=== PATIENT | male | born 1965 | race Two or more races ===

== ENCOUNTER → 2016-03-20 | Day surgery (SDC) | payer OTHER ==
[~2016-03-20] MED LIST: ASPI-482 PO; FENTANYL PF 100 MCG/2 ML VIAL. IV PRN; HYDROMORPHONE 2 MG/ML VIAL. IV PRN; IV RINGERS,LACTATED 1000ML 1,000 ML IV SCH; LIDOCAINE 1% 1 ML SYRINGE. ID PRN; LIDOCAINE 2% PF Vial for OR 5 ML VIAL. ONE; LISI10TA2 PO; MORPHINE SULFATE 2 MG/ML DISP.SYRIN. IV PRN; ONDANSETRON PF 4 MG/2 ML VIAL. IV PRN; PROCHLORPERAZINE 10 MG/2 ML VIAL. IV PRN; PROPOFOL 40 ML IV ONE
[2016-03-20 08:52] VITALS: BP 121/70
--- NOTE | 2016-03-23 15:18 | PATHOLOGY ---
PATHOLOGY REPORT * * * * * * * * FINAL DIAGNOSIS: Colon biopsy, transverse colon polyp: - Tubular adenoma. COMMENT: There is no high-grade dysplasia or evidence of malignancy. (NADEEMM:; d/t: 03/23/16) REPORT ELECTRONICALLY SIGNED BY: Morgan Landeros M.D. DATE/TIME: 03/23/2016 15:18 * * * * * * * * GROSS PATHOLOGY: Received in formalin labeled "Annmarie Bertrand, transverse colon polyp biopsy," are two segments of clifford soft tissue measuring 0.4 x 0.3 x 0.1 cm in aggregate dimensions and ranging from 0.1 to 0.3 cm in maximum dimension. The specimen is submitted entirely in cassette A1. (CAA; 03/20/2016) INITIAL CPT CODE(S): A; 10647 Professional services performed by [facility] [place] [address] Technical services performed by [facility] at [address] [place] [address], [facility] [address] [address]. SPECIMEN(S) RECEIVED: A.Transverse colon polyp CLINICAL HISTORY: Abdominal pain; polyp PATIENT: ANNMARIE BERTRAND /AGE: 7 1965 (Age: 50) PATIENT #: [id number] ALT CASE #: SPECIMEN COLLECTION DATE: 03/20/2016 SPECIMEN RECEIVED DATE: 03/20/2016 [facility] - [address] [place] [address] - PHONE: [phone] * * * END OF REPORT * * *
== END ==
LOC: ENDOS 06:48
PROVIDERS: ATTEND Internal Medicine Gastroenterology
DX: K63.5 Polyp of colon (principal); K64.0 First degree hemorrhoids; I10 Essential (primary) hypertension; Z72.89 Other problems related to lifestyle; Z79.82 Long term (current) use of aspirin
CPT/HCPCS: 45380; J2704

== ENCOUNTER → 2016-04-24 | Outpatient (CLI) | payer OTHER ==
[2016-03-20 08:52] VITALS: BP 121/70
[~2016-04-24] MED LIST changes: -FENTANYL PF 100 MCG/2 ML VIAL. IV PRN; -HYDROMORPHONE 2 MG/ML VIAL. IV PRN; -IV RINGERS,LACTATED 1000ML 1,000 ML IV SCH; -LIDOCAINE 1% 1 ML SYRINGE. ID PRN; -LIDOCAINE 2% PF Vial for OR 5 ML VIAL. ONE; -MORPHINE SULFATE 2 MG/ML DISP.SYRIN. IV PRN; -ONDANSETRON PF 4 MG/2 ML VIAL. IV PRN; -PROCHLORPERAZINE 10 MG/2 ML VIAL. IV PRN; -PROPOFOL 40 ML IV ONE
--- NOTE | 2016-04-24 10:01 | RAD ---
MRCP, 04/24/2016: History: Abdominal pain Imaging of the upper abdomen was performed in axial and coronal planes utilizing a variety of imaging sequences including T2 weighted, fat suppressed T2-weighted and opposed phase gradient-echo sequences. Heavily T2 weighted MRCP sequences were obtained with and without respiratory gating with 3-D MIP reconstructions produced. The bile ducts are of normal caliber. No filling defect is seen in the bile ducts to suggest a retained calculus. There is some layering of material in the gallbladder which may be due to sludge. The pancreatic duct is small. There is signal dropout in the liver on the out of phase gradient-echo images compatible with fatty change. No focal hepatic lesion is identified. The pancreas, spleen and both kidneys are unremarkable. IMPRESSION: 1. Layering of material in the gallbladder compatible with sludge, although small calculi cannot be excluded. Correlation with sonographic findings is suggested. 2. No biliary ductal abnormality is detected. 3. Hepatic steatosis
== END | disposition home or self-care (01) ==
LOC: MRI 07:25
PROVIDERS: ATTEND Internal Medicine Gastroenterology
DX: K76.0 Fatty (change of) liver, not elsewhere classified (principal)
CPT/HCPCS: 74181

== ENCOUNTER → 2019-01-06 | Outpatient (CLI) | payer OTHER ==
[2016-03-20 08:52] VITALS: BP 121/70
--- NOTE | 2019-01-06 14:04 | KCIC ---
MR of the right knee HISTORY: Right knee pain popping and swelling for 4 months. No known injury. Pain is lateral. TECHNIQUE: Routine multiplanar sequences are obtained. FINDINGS: No evidence of medial or lateral meniscal tear. Anterior and posterior cruciate ligaments are intact. Medial collateral ligament intact. Iliotibial band unremarkable. Fibular collateral ligament, biceps femoris tendon and popliteus tendon are intact. Extensor mechanism is intact. No acute retinacular tear. Small joint effusion. No evidence of osteochondral loose body. Mild chondromalacia at the patellofemoral joint. Approximately moderate chondral thinning at the medial joint compartment. No acute fracture. No aggressive bone destruction. No evidence of acute soft tissue abnormality. IMPRESSION: 1. No evidence of meniscal tear or internal derangement. 2. Degenerative changes at medial and patellofemoral compartments. Electronically signed by: Nate Hermosillo MD (01/06/2019 2:01 PM) [facility]
== END | disposition home or self-care (01) ==
LOC: KCIC MRI 11:15
DX: M17.11 Unilateral primary osteoarthritis, right knee (principal); M25.461 Effusion, right knee; M22.41 Chondromalacia patellae, right knee
CPT/HCPCS: 73721

== ENCOUNTER → 2020-03-01 | Outpatient (CLI) | payer OTHER ==
[2016-03-20 08:52] VITALS: BP 121/70
[~2020-03-01] MED LIST changes: +LISI10TA16 PO; -LISI10TA2 PO
--- NOTE | 2020-03-01 13:13 | RAD ---
EXAM: Dual modality PET-CT Scan DATE: 03/01/2020 RADIOPHARMACEUTICAL: 15.58 mCi F-18 fluorodeoxyglucose (FDG) IV. CLINICAL HISTORY: Prostate cancer. Abnormal weight loss. COMPARISON: MRI dated 04/24/2016. TECHNIQUE: Approximately 45 minutes after tracer administration, routine, attenuation-corrected Posit shady Emission Tomography (PET) images were obtained from the level of the base of the skull through th e level of the mid thighs. Tomographic reconstructions are reviewed in coronal, transaxial and sagitt al planes. Non-contrast CT imaging was performed for attenuation correction and localization purpose s only. These images do not constitute a diagnostic-quality CT examination and were not used to diag nose disease independently of the PET images. The blood glucose level was 107 mg/dL at the time of FDG administration. *One or more of the following individualized dose reduction techniques were utilized for this examina tion: 1. Automated exposure control. 2. Adjustment of the mA and/or kV according to patient size. 3. Use of iterative reconstruction technique. FINDINGS: There is no abnormal radiotracer activity to suggest malignancy. There is physiologic activ ity within the bowel and renal collecting system. There is mild radiotracer activity at the gastroeso phageal junction which may be due to a component of reflux given the presence of a small hiatal herni a. The CT portion of the exam is notable for hepatomegaly and hepatic steatosis. No focal hepatic lesion is seen on this noncontrast exam. The gallbladder, pancreas, spleen, adrenal glands and kidneys are unremarkable. There is no appendicitis. There is no bowel obstruction. The urinary bladder is unremar kable. The prostate is absent. There is mild rectal wall thickening likely due to relative under dist ention. There are small fat-containing umbilical and inguinal hernias. The aorta is normal in caliber . There is no infiltrate, pleural effusion or pneumothorax. There is bilateral posterior dependent and basilar atelectasis. There is no suspicious pulmonary nodule. The heart is normal in size. There is n o mediastinal or hilar lymphadenopathy. There is a small hiatal hernia. The visualized portions of th e brain are unremarkable. There is no neck lymphadenopathy or neck mass. There are degenerative matta es throughout the spine. There is no suspicious osseous lesion. There are few benign bone islands. IMPRESSION: 1. No abnormal radiotracer activity to suggest malignancy. 2. Hepatomegaly and hepatic steatosis. 3. Small hiatal hernia. Electronically signed by: Mimi Goel MD (03/01/2020 1:11 PM) [id number]
== END ==
LOC: PETSC 10:38
PROVIDERS: ATTEND Family Medicine
DX: C61 Malignant neoplasm of prostate (principal); K44.9 Diaphragmatic hernia without obstruction or gangrene; K76.0 Fatty (change of) liver, not elsewhere classified; J98.11 Atelectasis; K40.90 Unilateral inguinal hernia, without obstruction or gangrene, not specified as recurrent; Z90.79 Acquired absence of other genital organ(s)
CPT/HCPCS: 78815; A9552

== ENCOUNTER 2021-01-29 18:28 | Emergency (ER) | payer OTHER ==
[~2021-01-29] VITALS: Ht 175.3 cm; Wt 103.0 kg
--- NOTE | 2021-01-29 18:38 | PHYS DOC ---
General Adult EDM: Chief Complaint: CHEST PAIN HPI: HPI: He isPatient is a 55-year-old male who presents emergency department for chest pain that started last night. Right sided chest pain and describes it as a sharp pain. He rates it 9 out of 10. No treatment prior to arrival. It is worse with palpation and deep breathing. Patient is reporting shortness of breath, nausea with 3 episodes of vomiting, nonproductive cough. He denies any fevers, dizziness, sick exposures. He has a history of hypertension, prostate cancer and a TIA. Review of Systems: Review of Systems: Constitutional: See HPI Respiratory: See HPI Cardiovascular: See HPI GI: See HPI Neurologic: See HPI Heart Score: C/O Chest Pain: Yes HEART Score for Chest Pain: HEART Score for Chest Pain Response (Comments) Value History Slighlty/Non-Suspicious 0 ECG Normal 0 Age >45 - < 65 1 Risk Factors 1 or 2 Risk Factors 1 Troponin < Normal Limit 0 Total 2 Risk Factors: Risk Factors: DM, Current or recent (<one month) smoker, HTN, HLP, family history of CAD, obesity. Risk Scores: Score 0 - 3: 2.5% MACE over next 6 weeks - Discharge Home Score 4 - 6: 20.3% MACE over next 6 weeks - Admit for Clinical Observation Score 7 - 10: 72.7% MACE over next 6 weeks - Early Invasive Strategies Allergies: Allergies: Allergies Coded Allergies Type Severity Reaction Last Updated Verified No Known Drug Allergies 03/20/16 No Physical Exam: PE: Constitutional: Well developed, well nourished, no acute distress, non-toxic appearance. [] HENT: Normocephalic, atraumatic, bilateral external ears normal, oropharynx moist, no oral exudates, nose normal. [] Eyes: PERRL, EOMI, conjunctiva normal, no discharge. [] Neck: Normal range of motion, no tenderness, supple, no stridor. [] Cardiovascular:Heart rate regular rhythm, no murmur, chest pain reproducible with palpation [] Lungs & Thorax: Bilateral breath sounds clear to auscultation [] Abdomen: Bowel sounds normal, soft, no tenderness, no masses, no pulsatile masses. [] Skin: Warm, dry, no erythema, no rash. [] Back: Normal range of motion Extremities: No tenderness, no cyanosis, no clubbing, ROM intact, no edema. [] Neurologic: Alert and oriented X 3, normal motor function, normal sensory function, no focal deficits noted. [] Psychologic: Affect normal, judgement normal, mood normal. [] Current Patient Data: Labs: Laboratory Tests Test 01/29/21 18:44 01/29/21 19:16 White Blood Count 8.4 x10^3/uL Red Blood Count 5.89 x10^6/uL Hemoglobin 15.0 g/dL Hematocrit 44.9 % Mean Corpuscular Volume 76 fL Mean Corpuscular Hemoglobin 26 pg Mean Corpuscular Hemoglobin Concent 34 g/dL Red Cell Distribution Width 13.5 % Platelet Count 252 x10^3/uL Neutrophils (%) (Auto) 52 % Lymphocytes (%) (Auto) 42 % Monocytes (%) (Auto) 5 % Eosinophils (%) (Auto) 1 % Basophils (%) (Auto) 1 % Neutrophils # (Auto) 4.4 x10^3/uL Lymphocytes # (Auto) 3.5 x10^3/uL Monocytes # (Auto) 0.4 x10^3/uL Eosinophils # (Auto) 0.1 x10^3/uL Basophils # (Auto) 0.1 x10^3/uL Sodium Level 141 mmol/L Potassium Level 3.9 mmol/L Chloride Level 102 mmol/L Carbon Dioxide Level 27 mmol/L Anion Gap 12 Blood Urea Nitrogen 15 mg/dL Creatinine 1.1 mg/dL Estimated GFR (Cockcroft-Gault) 69.2 BUN/Creatinine Ratio 14 Glucose Level 93 mg/dL Calcium Level 8.6 mg/dL Total Bilirubin 0.3 mg/dL Aspartate Amino Transf (AST/SGOT) 23 U/L Alanine Aminotransferase (ALT/SGPT) 57 U/L Alkaline Phosphatase 93 U/L Troponin I High Sensitivity 6 ng/L Total Protein 7.2 g/dL Albumin 3.6 g/dL Albumin/Globulin Ratio 1.0 SARS-CoV-2 Antigen (Rapid) Negative Current Medications Medications (Trade) Dose Ordered Sig/Jaime Route PRN Reason Start Time Stop Time Status Last Admin Dose Admin Aspirin (Aspirin Chewable) 324 mg 1X ONCE PO 01/29/21 18:45 01/29/21 18:46 DC 01/29/21 19:07 Nitroglycerin (Nitrostat) 0.4 mg PRN Q5MIN PRN SL CP RATING > 1/10 01/29/21 18:45 01/30/21 18:44 01/29/21 20:40 EKG: EKG: EKG performed by ER staff at 1833 shows sinus rhythm with a rate of 96, QTC of 418, no STEMI read by Dr. Gilliland at 1835. [] Radiology/Procedures: Radiology/Procedures: []PROCEDURE: PORTABLE CHEST 1V Study: XR CHEST 1V Indication: Chest pain. Comparison: None. Findings: No confluent airspace infiltrate. No pleural effusion or pneumothorax. A nodular focus projecting at the left upper hemithorax over the second rib corresponds to a small focus of sclerosis within the rib when correlating with the 03/01/[address] A few additional millimetric nodular foci scattered elsewhere favored vascular structures imaged en face. The cardiomediastinal silhouette is within normal limits for size. Mild aortic calcific atherosclerosis. Impression: No acute radiographic abnormality of the chest. Electronically signed by: MARICRUZ THORNTON MD (01/29/2021 8:02 PM) [facility] DICTATED and SIGNED BY: MARICRUZ THORNTON MD DATE: 01/29/21 [id number] 0 Course & Med Decision Making: Course & Med Decision Making Pertinent Labs and Imaging studies reviewed. (See chart for details) [] Patient presents to the emergency department for right-sided chest pain started last night. His chest pain is reproducible and worse with deep breathing. He is also reporting shortness of breath, vomiting and a nonproductive cough. Work-up in the ER consisted of blood work, EKG and chest x-ray, Covid testing. Patient was treated with aspirin and nitro. He denies any relief in pain following nitro, pain medication was ordered. Patient's work-up in the ER was unremarkable, negative chest x-ray, negative Covid testing. His risk factor is hypertension.. His heart score is 2. Following treatment of pain with morphine, patient states complete relief of his pain. Patient advised to follow-up with his primary care provider, Dr. Craft. Patient's vital signs continue to be stable and he is in no acute distress. I discussed with patient all findings and diagnostic testing as well as the need to follow-up with PCP for further evaluation and treatment or return to the ER if any new or worsening symptoms. Strict return precautions were also discussed at length. Patient voiced understanding and agreement with the plan. Patient is hemodynamically stable at the time of disposition. Dragon Disclaimer: Dragon Disclaimer: This electronic medical record was generated, in whole or in part, using a voice recognition dictation system. Departure Departure Impression: Primary Impression: Chest pain Qualified Codes: R07.9 - Chest pain, unspecified Disposition: HOME / SELF CARE / HOMELESS Condition: GOOD Referrals: TIO CEDEÑO MD (PCP) Patient Instructions: Chest Pain (Nonspecific) Additional Instructions: You were seen in the emergency department today for chest pain. Your work-up in the ER was unremarkable and your chest x-ray showed no acute findings.Your rapid Covid test was negative and we will send out a PCR to confirm, you will be notified of those results in 2 days, please self isolate until you receive those results. Your pain was treated in the ER. At this time, does not appear that you are experiencing acute coronary syndrome. However, if your symptoms return you must be reevaluated. You can take Tylenol and/ibuprofen for your pain. Please follow-up with your primary care provider tomorrow regarding your ER visit. Please return to the emergency department if you develop chest pain, shortness of breath, palpitations, dizziness, intractable nausea or vomiting, high fevers refractory to treatment or any new or worsening concerns. CIARAN INMAN FILLING MACHINE SET UP MECHANIC Jan 29, 2021 18:38
[2021-01-29] MEDS ORDERED: ASPIRIN CHEWABLE 81 MG TABLET. PO ONE (18:45)
[2021-01-29 18:54] LABS: BASO # 0.1 x10^3/uL (0.0-0.2); BASO % 1 % (0-3); EOS # 0.1 x10^3/uL (0.0-0.7); EOS % 1 % (0-3); HEMATOCRIT 44.9 % (39.0-53.0); LYMPH # 3.5 x10^3/uL (1.0-4.8); LYMPH % 42 % (24-48); MEAN CORPUSCULAR HEMOGLOBIN 26 pg (25-35); MEAN CORPUSCULAR HGB CONC 34 g/dL (31-37); MEAN CORPUSCULAR VOLUME 76 fL (79-100); MONO # 0.4 x10^3/uL (0.0-1.1); MONO % 5 % (0-9); NEUT # 4.4 x10^3/uL (1.8-7.7); NEUT % 52 % (31-73); PLATELET COUNT 252 x10^3/uL (140-400); RED BLOOD COUNT 5.89 x10^6/uL (4.30-5.70); RED CELL DISTRIBUTION WIDTH 13.5 % (11.5-14.5); WHITE BLOOD COUNT 8.4 x10^3/uL (4.0-11.0)
[2021-01-29 19:04] LABS: CALCIUM 8.6 mg/dL (8.5-10.1); CREATININE 1.1 mg/dL (0.7-1.3); GFR 69.2; POTASSIUM 3.9 mmol/L (3.5-5.1)
[2021-01-29] MEDS: NITROGLYCERIN SUBLINGUAL 0.4 MG BOTTLE OF 25. SL PRN ×3 (19:07→20:40)
[2021-01-29 19:10] LABS: ALBUMIN 3.6 g/dL (3.4-5.0); TOTAL BILIRUBIN 0.3 mg/dL (0.2-1.0); TOTAL PROTEIN 7.2 g/dL (6.4-8.2)
--- NOTE | 2021-01-29 19:27 | EKG ---
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
--- NOTE | 2021-01-29 20:04 | RAD ---
Study: XR CHEST 1V Indication: Chest pain. Comparison: None. Findings: No confluent airspace infiltrate. No pleural effusion or pneumothorax. A nodular focus projecting at the left upper hemithorax over the second rib corresponds to a small focus of sclerosis within the ri b when correlating with the 03/01/[address] A few additional millimetric nodular foci scattered elsew here favored vascular structures imaged en face. The cardiomediastinal silhouette is within normal li mits for size. Mild aortic calcific atherosclerosis. Impression: No acute radiographic abnormality of the chest. Electronically signed by: MARICRUZ THORNTON MD (01/29/2021 8:02 PM) [facility]
[2021-01-29] MEDS ORDERED: MORPHINE SULFATE 4 MG/ML INJ. IVP ONE (21:00)
[2021-01-29 22:08] VITALS: BP 116/68
--- NOTE | 2021-01-31 13:35 | NUR ---
IP: Informed pt of negative covid test. pt verbalized understanding.
== END 2021-01-29 22:26 | disposition home or self-care (01) ==
LOC: ER 18:28
DX: R07.89 Other chest pain (principal); R06.02 Shortness of breath; R11.2 Nausea with vomiting, unspecified; Z20.822 Contact with and (suspected) exposure to COVID-19
CPT/HCPCS: 36415; 71045; 80053; 84484; 85025; 87426; 93005; 96374; 99285; J2270; U0003; U0005